=== PATIENT | male | born 1950 | race Caucasian/White ===

== ENCOUNTER → 2016-12-12 | Day surgery (SDC) | payer MEDICARE ==
[~2016-12-12] MED LIST: ACETAMINOPHEN/HYDROcodone 325 MG/5 MG TAB ONE; BUPIVACAINE HCL PF 0.5% 10 ML VIAL ONE; BUPIVACAINE HCL PF 0.75% 30 ML VIAL ONE; EPINEPHrine HCL (1:1000) 30 MG/30 ML VIAL ONE; LACTATED RINGER'S 1000 ML INJ 1,000 ML ONE; LIDOCAINE 1.5%/EPINEPHrine 1:200,000 PF SOLN 30 ML AMP ONE; MIDAZOLAM HCL 5 MG/ML VIAL (1 ML) ONE; PROPOFOL 200 MG/20 ML AMP IV ONE; ceFAZolin 2 GM PREMIX 50 ML ONE
--- NOTE | 2016-12-13 12:12 | MP ---
cc: SEA SUN DATE OF SURGERY 12/12/2016 PREOPERATIVE DIAGNOSES Right shoulder rotator cuff tear. Right shoulder impingement syndrome. Right shoulder labral tear. Right hand carpal tunnel syndrome. POSTOPERATIVE DIAGNOSES Right shoulder rotator cuff tear. Right shoulder impingement syndrome. Right shoulder labral tear. Right hand carpal tunnel syndrome. PROCEDURE 1. Right shoulder arthroscopic rotator cuff repair. 2. Right shoulder arthroscopic subacromial decompression. 3. Right shoulder arthroscopic extensive debridement of labral SLAP tear. 4. Right hand open carpal tunnel release. SURGEON Dr. Sea Sun MANAGER MINING Subhash Jones PA-C ANESTHESIA General with interscalene block right upper extremity. ESTIMATED BLOOD LOSS Less than 10 cc. TOURNIQUET TIME 0 minutes. COMPLICATIONS None. JUSTIFICATION This patient is a 66-year male who injured the right shoulder. He has had persistent pain and weakness in regards to his condition with failure of conservative. Clinical exam as well as well as MRI confirmed the above-named findings. The patient was counseled as to the risks, benefits and alternatives to rotator cuff repair as outlined above. He did wish to surgery. OF NOTE: He also complained of significant pain and numbness of the right hand. He did have EMG, nerve conduction findings consistent with carpal tunnel syndrome. He also did wish to proceed with right hand carpal tunnel release after failure of conservative treatment. PROCEDURE IN DETAIL Written consent was obtained. The patient was identified by name. A scalene nerve block was administered to the right upper extremity by the anesthesiologist. The patient was taken to the operating room. General anesthesia was administered as well as 2 grams of IV Ancef. Attention was turned first turned to the right upper extremity where the right hand was then prepped and draped using isopropyl alcohol, Hibiclens solution and DuraPrep solution after the patient was administered 2 grams of IV Ancef preoperatively. After a time-out was performed, a longitudinal incision was made over the ulnar border of the palmar crease. Dissection was carried down to the level of the transverse carpal ligament. The transverse carpal ligament was released with a 15 blade scalpel. Careful attention was taken to protect the median nerve throughout the carpal tunnel release. The surgical wound was thoroughly irrigated with sterile saline solution. The subcutaneous layer was closed with 4-0 Vicryl suture. The skin was closed with 4-0 nylon suture. Sterile dressings were applied. The patient tolerated this procedure well. At this point the patient was then carefully turned to the left lateral decubitus position. A lateral arm roll was placed, all bony prominences and pressure points were well padded. The patient's neck was carefully positioned and kept neutral. An arthroscopic arm bay was gently applied to the right upper extremity with 10 pounds of traction placed. The right shoulder was prepped and draped using as isopropyl alcohol, Hibiclens solution and DuraPrep solution. Standard posterior and anterior glenohumeral arthroscopic portals were established. The glenohumeral joint revealed evidence of extensive labral tearing along the anterior, superior and posterior portions. An arthroscopic shaver was introduced from the anterior portal and extensive debridement was performed to include the 3 o'clock position of the labrum up to the 12 o'clock, back down to the 9 o'clock position. After an extensive bursectomy and labral debridement, the glenohumeral joint revealed evidence of some grade 2 chondromalacia changes both involving the humeral head and the glenoid itself. There was evidence of a full-thickness tear of the subscapularis tendon, detached from the lesser tuberosity. An Arthrex SutureLasso was used to shuttle a #2 FiberLink suture around the torn tendon. At this point an Arthrex 4.75-mm Bio-SwiveLock anchor was inserted in the left tuberosity for surgical repair arthroscopically of the subscapularis rotator cuff tendon. Attention was turned to the subacromial space. There was evidence of significant impingement and bursitis. An arthroscopic shaver was entered from the lateral portal. A subacromial decompression was performed. The shaver was used to perform extensive bursectomy. Arthroscopic bur was used to perform acromioplasty and the used to release the coracoacromial ligament. I did expose the previous Ethibond suture repair of the deltoid which I left undisturbed. The bur was used to decorticate the greater tuberosity in preparation for rotator cuff tendon repair. There was evidence of full-thickness tear involving the supraspinatus tendon, extending into the infraspinatus as well which involved the rotator cuff. Two Arthrex 4.75-mm Bio-SwiveLock anchors were inserted along a medial row. The Scorpion device was used to shuttle #2 FiberTape sutures through the anterior and posterior portions of the torn tendon. A far #2 FiberLink suture was placed along the anterior and also posterior portions of the torn tendon. An Arthrex Eli SpeedBridge construct was created with insertion of a posterolateral and anterolateral anchor to appropriate tensioning of sutures and insertion of lateral row anchors. The rotator cuff tear was probed and noted to have good stability and fixation. The arthroscopic portals were closed with 3-0 Prolene sutures. Sterile dressings were applied. The patient was placed in a sling and swath immobilizer. The patient tolerated the procedure well. No intraoperative complications noted. Sea Jones, physician assistant portfolio manager certified, was present during the entire procedure to include patient positioning and the procedure itself. The medical necessity of the physician assistant portfolio manager was indicated in this case due to the complexity of the procedure itself. He assisted in appropriate manipulation of the arm and also manipulation of the camera, he assisted with shuttling the sutures, and also implantation of suture anchors for the purpose of rotator cuff tendon repair. Sea uSn MD JWM/SSB /2:36 PM /11:42 AM
== END | disposition home or self-care (01) ==
LOC: ESDC 10:45
PROVIDERS: ATTEND Orthopaedic Surgery Sports Medicine
DX: M75.121 Complete rotator cuff tear or rupture of right shoulder, not specified as traumatic (principal); M75.41 Impingement syndrome of right shoulder; S43.431A Superior glenoid labrum lesion of right shoulder, initial encounter; G56.01 Carpal tunnel syndrome, right upper limb
CPT/HCPCS: 01630; 01810; 01991; 29823; 29826; 29827; 64417; 64721; C1713; J0171; J0690; J2250; J7120